=== PATIENT | female | born 1950 | race Caucasian/White ===

== ENCOUNTER 2016-10-22 07:50 | Outpatient (CLI) | payer OTHER | END 2016-10-22 07:51 | disposition home or self-care (01) | DX: I10 Essential (primary) hypertension (principal); E78.5 Hyperlipidemia, unspecified ==

== ENCOUNTER 2018-09-04 08:40 | Outpatient (CLI) | payer MEDICARE, OTHER ==
[2018-09-04 18:02] LABS: BASOPHILS # (AUTO) 0.1 10^3/uL (0.0-0.1); EOSINOPHILS # (AUTO) 0.2 10^3/uL (0.0-0.7); EOSINOPHILS % (AUTO) 2.7 %; HGB - HEMOGLOBIN 11.9 g/dL (12.0-16.0); LYMPHOCYTES # (AUTO) 1.6 10^3/uL (1.5-3.5); LYMPHOCYTES % (AUTO) 27.2 %; MEAN CORPUSCULAR HEMOGLOBIN 26.2 pg (27.0-31.0); MEAN CORPUSCULAR HGB CONC 32.4 g/dL (32.0-36.0); MEAN CORPUSCULAR VOLUME 80.7 fL (81.0-99.0); MEAN PLATELET VOLUME 8.6 fL (7.9-10.8); MONOCYTES # (AUTO) 0.4 10^3/uL (0.0-1.0); MONOCYTES % (AUTO) 6.5 %; NEUTROPHILS # (AUTO) 3.7 10^3/uL (1.5-6.6); NEUTROPHILS % (AUTO) 62.6 %; PLT - PLATELET COUNT 265 10^3/uL (130-450); RED BLOOD COUNT 4.54 10^6/uL (4.20-5.40); RED CELL DISTRIBUTION WIDTH 14.3 % (12.0-15.0)
[2018-09-04 18:31] LABS: ALBUMIN 3.7 g/dL (3.2-5.5); ALBUMIN/GLOBULIN RATIO 1.1 (1.0-2.2); ALKALINE PHOSPHATASE 66 IU/L (42-121); ALT ALANINE AMINOTRANSFERASE 12 IU/L (10-60); AST ASPARTATE AMINOTRANSFERASE 16 IU/L (10-42); BILIRUBIN,TOTAL 0.5 mg/dL (0.2-1.0); BUN - BLOOD UREA NITROGEN 24 mg/dL (6-20); CARBON DIOXIDE - CO2 27 mmol/L (21-32); CHLORIDE 103 mmol/L (101-111); CHOLESTEROL 173 mg/dL; GFR - MDRD 56 (>89); GLUCOSE 103 mg/dL (70-100); HDL CHOLESTEROL 57 mg/dL; LDL CHOLESTEROL,CALCULATED 104 mg/dL; LDL/HDL RATIO 1.8 (<4.4); SODIUM 136 mmol/L (135-145); TOTAL PROTEIN 7.2 g/dL (6.7-8.2); VLDL CHOLESTEROL 12 mg/dL
== END 2018-09-04 08:41 | disposition home or self-care (01) ==
LOC: LAB.F 08:40
PROVIDERS: ATTEND Nurse Practitioner Family
DX: I10 Essential (primary) hypertension (principal); E78.5 Hyperlipidemia, unspecified
CPT/HCPCS: 36415; 80053; 80061; 83721; 84443; 85025

== ENCOUNTER 2019-07-13 09:43 | Outpatient (CLI) | payer MEDICARE, OTHER ==
[2019-07-13 18:28] LABS: BASOPHILS # (AUTO) 0.1 10^3/uL (0.0-0.1); BASOPHILS % (AUTO) 0.9 %; EOSINOPHILS # (AUTO) 0.1 10^3/uL (0.0-0.7); EOSINOPHILS % (AUTO) 1.9 %; HGB - HEMOGLOBIN 11.6 g/dL (12.0-16.0); LYMPHOCYTES # (AUTO) 1.9 10^3/uL (1.5-3.5); LYMPHOCYTES % (AUTO) 29.5 %; MEAN CORPUSCULAR HEMOGLOBIN 23.6 pg (27.0-31.0); MEAN CORPUSCULAR HGB CONC 29.4 g/dL (32.0-36.0); MEAN CORPUSCULAR VOLUME 80.4 fL (81.0-99.0); MEAN PLATELET VOLUME 10.6 fL (7.9-10.8); MONOCYTES # (AUTO) 0.5 10^3/uL (0.0-1.0); MONOCYTES % (AUTO) 7.7 %; NEUTROPHILS # (AUTO) 3.8 10^3/uL (1.5-6.6); NEUTROPHILS % (AUTO) 59.7 %; PLT - PLATELET COUNT 313 10^3/uL (130-450); RED BLOOD COUNT 4.91 10^6/uL (4.20-5.40); RED CELL DISTRIBUTION WIDTH 15.5 % (12.0-15.0); WHITE BLOOD COUNT 6.4 x10^3/uL (4.8-10.8)
[2019-07-13 18:55] LABS: ALBUMIN 3.8 g/dL (3.2-5.5); ALBUMIN/GLOBULIN RATIO 1.1 (1.0-2.2); ALKALINE PHOSPHATASE 59 IU/L (42-121); ALT ALANINE AMINOTRANSFERASE 12 IU/L (10-60); AST ASPARTATE AMINOTRANSFERASE 15 IU/L (10-42); BILIRUBIN,TOTAL 0.5 mg/dL (0.2-1.0); BUN - BLOOD UREA NITROGEN 24 mg/dL (6-20); CALCIUM 9.1 mg/dL (8.5-10.3); CARBON DIOXIDE - CO2 25 mmol/L (21-32); CHLORIDE 106 mmol/L (101-111); CHOLESTEROL 223 mg/dL; CREATININE 1.1 mg/dL (0.4-1.0); GFR - MDRD 50 (>89); GLUCOSE 107 mg/dL (70-100); HDL CHOLESTEROL 56 mg/dL; LDL CHOLESTEROL,CALCULATED 154 mg/dL; LDL/HDL RATIO 2.8 (<4.4); SODIUM 137 mmol/L (135-145); TOTAL PROTEIN 7.2 g/dL (6.7-8.2); VLDL CHOLESTEROL 13 mg/dL
== END 2019-07-13 09:44 | disposition home or self-care (01) ==
LOC: LAB.S 09:43
PROVIDERS: ATTEND Registered Nurse
DX: I10 Essential (primary) hypertension (principal); R73.01 Impaired fasting glucose; E78.5 Hyperlipidemia, unspecified
CPT/HCPCS: 36415; 80053; 80061; 83721; 84443; 85025

== ENCOUNTER 2019-08-16 13:43 | Outpatient (CLI) | payer MEDICARE, OTHER ==
--- NOTE | 2019-08-20 11:03 | Mammography Report ---
Reason: ROUTINE MAMMO Procedure Date: 08/16/2019 Accession Number: [id number] / [id number] Procedure: MGS - Screening Mammo Dig Bilat CPT Code: Final Report FULL RESULT: EXAM: Screening Mammo Dig Bilat DATE: 08/16/2019 2:01 PM CLINICAL HISTORY: Screening encounter. History of early menses. Family history of breast cancer in a paternal aunt at the age of 60. TECHNIQUE: (B) - Bilateral CC and MLO views were obtained. COMPARISON: 12/26/2014. PARENCHYMAL PATTERN: (A) - The breast(s) demonstrate(s) scattered fibroglandular densities. FINDINGS: There are no suspicious masses, calcifications, or areas of distortion. IMPRESSION: Negative examination. BI-RADS category 1. RECOMMENDATION: (ANNUAL) - Recommend routine annual screening mammography. BI-RADS CATEGORY: (1) - Negative. STANDARD QUALIFYING STATEMENTS: 1. This examination was reviewed with the aid of Computer-Aided Detection (CAD). 2. A negative or benign imaging report should not preclude biopsy if clinically suspicious findings are present. 3. Dense breasts may obscure an underlying neoplasm. 4. This examination was reviewed without the aid of 3D breast imaging (tomosynthesis).
== END 2019-08-16 13:44 | disposition home or self-care (01) ==
LOC: DI.S 13:43
PROVIDERS: ATTEND Registered Nurse
DX: Z12.31 Encounter for screening mammogram for malignant neoplasm of breast (principal); Z80.3 Family history of malignant neoplasm of breast
CPT/HCPCS: 77067

== ENCOUNTER 2020-09-04 08:11 | Outpatient (CLI) | payer MEDICARE, OTHER ==
[2020-09-04 15:58] LABS: BASOPHILS # (AUTO) 0.1 10^3/uL (0.0-0.1); BASOPHILS % (AUTO) 0.7 %; EOSINOPHILS # (AUTO) 0.1 10^3/uL (0.0-0.7); EOSINOPHILS % (AUTO) 1.8 %; HCT - HEMATOCRIT 41.9 % (37.0-47.0); HGB - HEMOGLOBIN 12.7 g/dL (12.0-16.0); LYMPHOCYTES # (AUTO) 1.9 10^3/uL (1.5-3.5); LYMPHOCYTES % (AUTO) 24.5 %; MEAN CORPUSCULAR HEMOGLOBIN 25.6 pg (27.0-31.0); MEAN CORPUSCULAR HGB CONC 30.3 g/dL (32.0-36.0); MEAN CORPUSCULAR VOLUME 84.3 fL (81.0-99.0); MEAN PLATELET VOLUME 10.7 fL (7.9-10.8); MONOCYTES # (AUTO) 0.5 10^3/uL (0.0-1.0); NEUTROPHILS % (AUTO) 65.9 %; PLT - PLATELET COUNT 308 10^3/uL (130-450); RED BLOOD COUNT 4.97 10^6/uL (4.20-5.40); RED CELL DISTRIBUTION WIDTH 13.7 % (12.0-15.0); WHITE BLOOD COUNT 7.6 x10^3/uL (4.8-10.8)
[2020-09-04 16:27] LABS: ALBUMIN 3.8 g/dL (3.2-5.5); ALBUMIN/GLOBULIN RATIO 1.1 (1.0-2.2); ALKALINE PHOSPHATASE 61 IU/L (42-121); ALT ALANINE AMINOTRANSFERASE 12 IU/L (10-60); AST ASPARTATE AMINOTRANSFERASE 14 IU/L (10-42); BILIRUBIN,TOTAL 0.5 mg/dL (0.2-1.0); BUN - BLOOD UREA NITROGEN 18 mg/dL (6-20); CALCIUM 9.3 mg/dL (8.5-10.3); CARBON DIOXIDE - CO2 24 mmol/L (21-32); CHLORIDE 103 mmol/L (101-111); CHOL/HDL RATIO 3.7 (<4.4); CHOLESTEROL 191 mg/dL; GFR - MDRD 55 (>89); GLUCOSE 117 mg/dL (70-100); HDL CHOLESTEROL 51 mg/dL; LDL CHOLESTEROL,CALCULATED 119 mg/dL; LDL/HDL RATIO 2.3 (<4.4); POTASSIUM 3.8 mmol/L (3.5-5.0); SODIUM 136 mmol/L (135-145); THYROID STIMULATING HORMONE 1.7 uIU/mL (0.34-5.60); TOTAL PROTEIN 7.4 g/dL (6.7-8.2); TRIGLYCERIDES 104 mg/dL; VLDL CHOLESTEROL 21 mg/dL
== END 2020-09-04 08:12 | disposition home or self-care (01) ==
LOC: LAB.S 08:11
PROVIDERS: ATTEND Registered Nurse
DX: R19.8 Other specified symptoms and signs involving the digestive system and abdomen (principal); K59.09 Other constipation; I10 Essential (primary) hypertension; R73.01 Impaired fasting glucose; E78.5 Hyperlipidemia, unspecified
CPT/HCPCS: 36415; 80053; 80061; 83721; 84443; 85025

== ENCOUNTER 2020-09-08 14:32 | Outpatient (CLI) | payer MEDICARE, OTHER ==
--- NOTE | 2020-09-08 16:02 | XRAY Report ---
PROCEDURE: Abdomen 2 View X-Ray INDICATIONS: BOWEL PATTERN, CONSTIPATION TECHNIQUE: 2 views of the abdomen were acquired. COMPARISON: FINDINGS: Surgical changes and devices: None. Bowel: No pneumoperitoneum. The bowel gas pattern is normal for the small bowel but the colon demon strate generalized colonic obstipation.. Soft tissues: No masses; visualized solid organ contours appear normal in size. No suspicious abdom inal calcifications. Bones: No suspicious bony abnormalities. IMPRESSION: Generalized colonic obstipation. This is present both on the right and the left, and wit hin the abdomen and the pelvis. Reviewed by: Isaias Navarro MD on 09/08/2020 4:01 PM PDT Approved by: Isaias Navarro MD on 09/08/2020 4:01 PM PDT Station ID: [id number]
== END 2020-09-08 14:33 | disposition home or self-care (01) ==
LOC: DI.S 14:32
PROVIDERS: ATTEND Registered Nurse
DX: K59.09 Other constipation (principal); R19.8 Other specified symptoms and signs involving the digestive system and abdomen

== ENCOUNTER 2020-10-17 12:30 | Day surgery (SDC) | payer MEDICARE, OTHER ==
[2020-10-17] MEDS ORDERED: LACTATED RINGERS 1,000 ML IV ONE ×2 (12:38→16:35)
[2020-10-17] MEDS ORDERED: fentaNYL 250 MCG/5 ML VIAL ONE (15:08)
[2020-10-17] MEDS ORDERED: MIDAZOLAM 2 MG/2 ML VIAL ONE ×4 (15:08→15:51)
--- NOTE | 2020-10-17 15:16 | HISTORY & PHYSICAL EXAMINATION ---
Chief Complaint - Chief Complaint Chief Complaint: irregular bowel habits History of Present Illness - History Obtained From Records Reviewed: yes History obtained from: pt Exam Limitations: none - History of Present Illness HPI Comment/Other: History of irregular bowel habits for years. No prior colon cancer screening History - Past Medical History Cardiovascular: reports: Hypertension GI: reports: None : reports: None Psych: reports: Depression, Anxiety, Panic attacks Musculoskeletal: reports: Osteoarthritis Derm: reports: None MRSA Hx?: No Meds/Allgy - Home Medications Home Medications: Ambulatory Orders Medication Instructions Recorded Confirmed Losartan Potassium [Cozaar] 100 mg PO DAILY 10/16/20 10/17/20 Lovastatin 20 mg PO DAILY 10/16/20 10/17/20 PARoxetine [Paxil] 20 mg PO DAILY 10/16/20 10/17/20 - Allergies Allergies/Adverse Reactions: Allergies Allergy/AdvReac Type Severity Reaction Status Date / Time Sulfa (Sulfonamide Allergy Unknown Verified 10/17/20 12:59 Antibiotics) lisinopril AdvReac Unknown Verified 10/17/20 12:59 Review of Systems - Other Findings Other Findings: 10 pt ros as above otherwise unremarkable Exam - Vital Signs Reviewed Vital Signs: Yes Vital Signs: Vital Signs x48h Temp Pulse Resp BP Pulse Ox 10/17/20 12:49 36.4 C L 66 12 124/70 95 - Physical Exam General Appearance: positive: No acute distress, Alert Eyes Bilateral: positive: Normal inspection, PERRL, EOMI ENT: positive: No signs of dehydration Neck: positive: No JVD Respiratory: positive: Breath sounds nml Cardiovascular: positive: Regular rate & rhythm Abdomen: positive: Non-tender, No distention Neurologic/Psychiatric: positive: Oriented x3 Conclusion/Plan - Problem List (1) Irregular bowel habits Conclusion/Plan: plan colonoscopy. parq held and consent obtained
[2020-10-17 16:55] VITALS: BP 156/77
== END 2020-10-17 12:31 | disposition home or self-care (01) ==
LOC: SDS 12:30
PROVIDERS: ATTEND Surgery
PROC: 0DBL8ZZ Excision of Transverse Colon, Via Natural or Artificial Opening Endoscopic (ICD-10-PCS; 2020-10-17)
PROC: 0DBN8ZZ Excision of Sigmoid Colon, Via Natural or Artificial Opening Endoscopic (ICD-10-PCS; 2020-10-17)
PROC: 0DBH8ZZ Excision of Cecum, Via Natural or Artificial Opening Endoscopic (ICD-10-PCS; 2020-10-17)
PROC: 0DBH8ZZ Excision of Cecum, Via Natural or Artificial Opening Endoscopic (ICD-10-PCS; 2020-10-17)
PROC: 0DBK8ZZ Excision of Ascending Colon, Via Natural or Artificial Opening Endoscopic (ICD-10-PCS; principal; 2020-10-17 13:30)
DX: R19.4 Change in bowel habit (principal); R10.9 Unspecified abdominal pain; D12.5 Benign neoplasm of sigmoid colon; D12.3 Benign neoplasm of transverse colon; D12.2 Benign neoplasm of ascending colon; D12.1 Benign neoplasm of appendix; D12.0 Benign neoplasm of cecum; K57.30 Diverticulosis of large intestine without perforation or abscess without bleeding
CPT/HCPCS: 45380; 45385; J3010; J7120

== ENCOUNTER 2021-12-17 08:00 | Outpatient (CLI) | payer MEDICARE, OTHER ==
--- NOTE | 2021-12-17 17:35 | XRAY Report ---
PROCEDURE: Chest 2 View X-Ray INDICATIONS: CARDIAC MURMUR/COUGH/EXERCISE INTOLERANCE TECHNIQUE: 2 view(s) of the chest. COMPARISON: None. FINDINGS: Surgical changes and devices: None. Lungs and pleura: No pleural effusions or pneumothorax. Lungs are clear. Large hiatal hernia with a ir-fluid level. Mediastinum: Mediastinal contours are normal. Heart size is normal. Bones and chest wall: No suspicious bony abnormalities. Soft tissues appear unremarkable. IMPRESSION: Large hiatal hernia with air-fluid level. Otherwise, no acute cardiopulmonary abnormalit ies or focal airspace disease. Reviewed by: Italo Hess MD on 12/17/2021 5:33 PM PDT Approved by: Italo Hess MD on 12/17/2021 5:33 PM PDT Station ID: [id number]
== END 2021-12-17 23:59 | disposition home or self-care (01) ==
LOC: DI.S 08:00
PROVIDERS: ATTEND Registered Nurse
DX: R01.1 Cardiac murmur, unspecified (principal); R05.1 Acute cough; R53.83 Other fatigue; K44.9 Diaphragmatic hernia without obstruction or gangrene

== ENCOUNTER 2022-03-13 15:42 | Outpatient (CLI) | payer MEDICARE, OTHER | END 2022-03-13 15:43 | disposition short-term general hospital (02) | LOC: EMS 15:42 | DX: R07.9 Chest pain, unspecified (principal); R11.2 Nausea with vomiting, unspecified | CPT/HCPCS: A0425; A0427 ==

== ENCOUNTER 2022-09-15 12:36 | Outpatient (CLI) | payer MEDICARE, OTHER | END 2022-09-15 23:59 | disposition short-term general hospital (02) | LOC: EMS 12:36 | DX: R55 Syncope and collapse (principal); R51.9 Headache, unspecified | CPT/HCPCS: A0425; A0427 ==

== ENCOUNTER 2022-09-15 13:11 | Emergency (ER) | payer MEDICARE, OTHER ==
--- NOTE | 2022-09-15 13:21 | ED Physician Documentation ---
PD HPI CHEST PAIN - Stated complaint Stated Complaint: Syncope - History obtained from History obtained from: Patient - Additional information Additional information: 71-year-old woman with history of hypertension, hiatal hernia, depression and anxiety presents after syncopal episode. She states that she was recently admitted to [place] for chest pain with negative work-up. She does not recall if she had an echo. Today she was nauseous for about 10 minutes which is not to out of the ordinary and she gets that with her hiatal hernia but then she either fell or had a syncopal episode. She does not think she completely passed out but reportedly bystanders felt like she was completely syncopal. She hit her head reportedly quite hard on the way down on the refrigerator. She complains of moderate improving headache. No chest pain or trouble breathing. PD PAST MEDICAL HISTORY - Past Medical History Cardiovascular: Hypertension GI: None : None Psych: Depression, Anxiety, Panic attacks Musculoskeletal: Osteoarthritis Derm: None - Present Medications Home Medications: Ambulatory Orders Medication Instructions Recorded Confirmed Losartan Potassium [Cozaar] 100 mg PO DAILY 10/16/20 10/17/20 Lovastatin 20 mg PO DAILY 10/16/20 10/17/20 PARoxetine [Paxil] 20 mg PO DAILY 10/16/20 10/17/20 - Allergies Allergies/Adverse Reactions: Allergies Allergy/AdvReac Type Severity Reaction Status Date / Time Sulfa (Sulfonamide Allergy Unknown Verified 09/15/22 13:27 Antibiotics) lisinopril AdvReac Unknown Verified 09/15/22 13:27 PD ED PE NORMAL - Vitals Vital signs reviewed: Yes - General General: Alert and oriented X 3, No acute distress - HEENT HEENT: PERRL, EOMI - Neck Neck: Supple, no meningeal sign, No bony TTP - Cardiac Cardiac: RRR, Other (3 out of 6 systolic decrescendo murmur heard best at the left upper sternal border. Chronic per patient.) - Respiratory Respiratory: No respiratory distress, Clear bilaterally - Abdomen Abdomen: Non tender - Extremities Extremities: No edema, No calf tenderness / cord - Neuro Neuro: Alert and oriented X 3, Normal speech Results - Vitals Vitals: Vital Signs - 24 hr 09/15/22 09/15/22 09/15/22 13:05 13:24 14:33 Temperature 36.8 C Heart Rate 64 56 L Respiratory 16 16 16 Rate Blood Pressure 155/75 H 157/88 H O2 Saturation 99 100 99 09/15/22 15:30 Temperature 37.1 C Heart Rate 78 Respiratory 16 Rate Blood Pressure 150/71 H O2 Saturation 99 Oxygen O2 Source Room air - EKG (time done) 1356 EKG releavant findings:: EKG personally interpreted by author of this note. Relevant findings are: Rate: Rate (enter#) (57) Rhythm: NSR [place]: Normal Intervals: Normal IN QRS: LVH Ischemia: Normal ST segments - Labs Labs: Laboratory Tests 09/15/22 09/15/22 09/15/22 13:27 13:27 13:27 WBC 7.9 RBC 4.84 Hgb 13.0 Hct 41.6 MCV 86.0 MCH 26.9 L MCHC 31.3 L RDW 14.3 Plt Count 260 MPV 10.0 Neut # (Auto) 5.6 Lymph # (Auto) 1.4 L [place] # (Auto) 0.8 Eos # (Auto) 0.1 Baso # (Auto) 0.1 Absolute Nucleated RBC 0.00 Nucleated RBC % 0.0 Sodium 138 Potassium 4.0 Chloride 104 Carbon Dioxide 28 Anion Gap 6.0 BUN 17 Creatinine 1.0 Estimated GFR (MDRD) 55 L Glucose 115 H Calcium 9.0 Total Bilirubin 0.3 AST 23 ALT 24 Alkaline Phosphatase 60 Troponin I High Sens 3.8 Total Protein 6.7 Albumin 3.4 Globulin 3.3 Albumin/Globulin Ratio 1.0 - Rads (name of study) CT head and C-spine do not show evidence of acute trauma. She does have degenerative changes and remote lacunar infarcts. Relevant Findings:: Final report received, EMP independent interpretation of test PD Medical Decision Making - ED course ED course: 71-year-old woman presents after a possible syncopal episode versus head injury with loss of consciousness. CT imaging of the head and C-spine were negative but incidental findings of arthritis in the neck and old lacunar infarcts were discussed with the patient. The remainder of her work-up was negative with nonischemic EKG and normal CBC and CMP. She was asymptomatic while here. Departure - Departure Disposition: 01 Home, Self Care Clinical Impression: Syncope Qualifiers: Syncope type: vasovagal syncope Qualified Code(s): R55 - Syncope and collapse Head injury Qualifiers: Encounter type: initial encounter Qualified Code(s): S09.90XA - Unspecified injury of head, initial encounter Condition: Good Record reviewed to determine appropriate education?: Yes Instructions: ED Head Injury Closed, ED Syncope Vasovagal Comments: Call your doctor to arrange a follow-up appointment, make the next available appointment. In the interim, return anytime if worse or if new symptoms develop. Discharge Date/Time: 09/15/22 15:31
[2022-09-15 13:35] LABS: BASOPHILS # (AUTO) 0.1 10^3/uL (0.0-0.1); BASOPHILS % (AUTO) 0.6 %; EOSINOPHILS # (AUTO) 0.1 10^3/uL (0.0-0.7); HCT - HEMATOCRIT 41.6 % (37.0-47.0); LYMPHOCYTES # (AUTO) 1.4 10^3/uL (1.5-3.5); LYMPHOCYTES % (AUTO) 17.6 %; MEAN CORPUSCULAR HEMOGLOBIN 26.9 pg (27.0-31.0); MEAN CORPUSCULAR HGB CONC 31.3 g/dL (32.0-36.0); MONOCYTES # (AUTO) 0.8 10^3/uL (0.0-1.0); MONOCYTES % (AUTO) 10.1 %; NEUTROPHILS # (AUTO) 5.6 10^3/uL (1.5-6.6); NEUTROPHILS % (AUTO) 70.4 %; PLT - PLATELET COUNT 260 10^3/uL (130-450); RED BLOOD COUNT 4.84 10^6/uL (4.20-5.40); RED CELL DISTRIBUTION WIDTH 14.3 % (12.0-15.0); WHITE BLOOD COUNT 7.9 x10^3/uL (4.8-10.8)
[2022-09-15 13:46] LABS: ALBUMIN 3.4 g/dL (3.2-5.5); BILIRUBIN,TOTAL 0.3 mg/dL (0.2-1.0); TOTAL PROTEIN 6.7 g/dL (6.7-8.2)
--- NOTE | 2022-09-15 14:00 | CT Report ---
PROCEDURE: HEAD WO INDICATIONS: head inj TECHNIQUE: Noncontrast 4.5 mm thick angled axial sections acquired from the foramen magnum to the vertex. For r adiation dose reduction, the following was used: automated exposure control, adjustment of mA and/or kV according to patient size. COMPARISON: Correlation is made with the accompanying cervical spine CT, 09/15/2022 FINDINGS: Image quality: There is streak artifact seen through the skull base. CSF spaces: Basal cisterns are patent. No extra-axial fluid collections. Ventricles are normal in size and shape. Brain: No midline shift. No intracranial masses or hemorrhage. Maldonado-white matter interface is norm al. Age-appropriate brain parenchymal volume loss and chronic small vessel ischemic change can be se en. Apparent lacunar infarct can be seen within the right basal ganglia. Skull and face: Calvarium and visualized facial bones are intact, without suspicious lesions. Sinuses: Visualized sinuses and mastoids are clear. IMPRESSION: No tra acute abnormality is seen. No intracranial hemorrhage is seen. Apparent remote lacunar infarcts involving the right basal ganglia. Reviewed by: Singh Donaldson MD on 09/15/2022 12:59 PM [facility] Approved by: Singh Donaldson MD on 09/15/2022 12:59 PM [facility] Station ID: [id number]
--- NOTE | 2022-09-15 14:02 | CT Report ---
PROCEDURE: CERVICAL SPINE WO INDICATIONS: head inj TECHNIQUE: Noncontrast 3 mm thick sections acquired from the skull base to the T4 level. Sagittal and coronal r eformats were then constructed. For radiation dose reduction, the following was used: automated exp osure control, adjustment of mA and/or kV according to patient size. COMPARISON: Correlation is made with the accompanying head CT, 09/15/2022. FINDINGS: Image quality: Excellent. Bones: No fractures or dislocations. Visualized superior ribs are intact. Focal degenerative change can be seen involving the C1-C2 interface anteriorly. Multiple levels of si gnificant facet arthropathy can be seen. The disc heights are relatively well-preserved. Soft tissues: Prevertebral soft tissues are normal in thickness. No paravertebral hematomas. No ap ical pneumothoraces. Atherosclerotic calcification is seen. IMPRESSION: Negative for fracture. Reviewed by: Singh Donaldson MD on 09/15/2022 1:01 PM [facility] Approved by: Singh Donaldson MD on 09/15/2022 1:01 PM [facility] Station ID: [id number]
--- NOTE | 2022-09-15 14:08 | XRAY Report ---
PROCEDURE: Chest 1 View X-Ray INDICATIONS: syncope TECHNIQUE: One view of the chest was acquired. COMPARISON: 12/17/2021. FINDINGS: Surgical changes and devices: None. Lungs and pleura: No pleural effusions or pneumothorax. Left basilar atelectasis is seen. No focal i nfiltrate. Mediastinum: Mediastinal contours appear normal. Heart size is normal. Large hiatal hernia is seen. Bones and chest wall: No suspicious bony lesions. Overlying soft tissues appear unremarkable. IMPRESSION: Large hiatal hernia with left basilar atelectasis. No focal infiltrate, pleural effusion or pneumotho rax. Reviewed by: Chucho Brown MD on 09/15/2022 2:06 PM PDT Approved by: Chucho Brown MD on 09/15/2022 2:06 PM PDT Station ID: [id number]
--- OUTSIDE RECORDS SUMMARY | 2022-09-15 14:23 | EXTERNAL MEDICAL SUMMARY RPT | Continuity of Care Document ---
:1950 Author Organization [facility] Address [address] [place] [address] Phone Care Team Providers Name Role Phone Bijan Sky Unavailable Unavailable Allergies No information. Encounters No information. Functional Status No information. Immunizations No information. Medications No information. Problems No information. Procedures No information. Results/Labs test date author facility value unit interpret ation Result panel 1 (unknown) (no (unknown) (unknown) (no value) (units (unk nown) date) unknown) (unknown) (no (unknown) (unknown) 07/23/22 (units (unkno wn) date) unknown) (unknown) (no (unknown) (unknown) [id number] (units (unkno wn) date) unknown) (unknown) (no (unknown) (unknown) 10:44 (units (unkno wn) date) unknown) (unknown) (no (unknown) (unknown) Age at menarche: (units (unknown) date) 13 unknown) (unknown) (no (unknown) (unknown) Age at (units (unkno wn) date) menopause: 42 unknown) (unknown) (no (unknown) (unknown) Age/Sex: 71 / F (units (unknown) date) Date of Service: unknown) (unknown) (no (unknown) (unknown) Allergies (units (unkn own) date) unknown) (unknown) (no (unknown) (unknown) [place], [place] (units ( unknown) date) [id number] unknown) (unknown) (no (unknown) (unknown) Anxiety (units (unkno wn) date) unknown) (unknown) (no (unknown) (unknown) Attending Dr: (units ( unknown) date) Bijan Sky MD unknown) (unknown) (no (unknown) (unknown) BMI 30.7 (units (unkno wn) date) unknown) (unknown) (no (unknown) (unknown) BP 140/90 (units (unkn own) date) unknown) (unknown) (no (unknown) (unknown) Blood Pressure (units (unknown) date) Location Lt unknown) brachial (unknown) (no (unknown) (unknown) Brother Diabetes (units (unknown) date) mellitus unknown) (unknown) (no (unknown) (unknown) : 1950 (units (unknown) date) Acct:[id number] unknown) (unknown) (no (unknown) (unknown) Daughter (units (unkno wn) date) [place] unknown) (unknown) (no (unknown) (unknown) Dept at (units (unkno wn) date) . unknown) (unknown) (no (unknown) (unknown) Did you breast (units (unknown) date) feed?: No unknown) (unknown) (no (unknown) (unknown) Documented By: (units (unknown) date) Bijan Sky MD unknown) 07/23/22 1042 (unknown) (no (unknown) (unknown) Draft (units (unkno wn) date) unknown) (unknown) (no (unknown) (unknown) Family History (units (unknown) date) (Reviewed unknown) 07/23/22 @ 10:43 by Bre Jules MA) (unknown) (no (unknown) (unknown) Father Cancer (units ( unknown) date) unknown) (unknown) (no (unknown) (unknown) Glaucoma (units (unkno wn) date) unknown) (unknown) (no (unknown) (unknown) : 1 (units (unk nown) date) unknown) (unknown) (no (unknown) (unknown) Height 5 ft 6 in (units (unknown) date) unknown) (unknown) (no (unknown) (unknown) Hyperlipemia (units (u nknown) date) unknown) (unknown) (no (unknown) (unknown) Hypertension (units (u nknown) date) unknown) (unknown) (no (unknown) (unknown) Intake (units (unkno wn) date) unknown) (unknown) (no (unknown) (unknown) [facility] (units (unknown) date) unknown) (unknown) (no (unknown) (unknown) Loc: [facility] (units (unkno wn) date) unknown) (unknown) (no (unknown) (unknown) Medical History (units (unknown) date) (Reviewed unknown) 07/23/22 @ 10:43 by Bre Jules MA) (unknown) (no (unknown) (unknown) Medications (units (un known) date) unknown) (unknown) (no (unknown) (unknown) Mother (units (unkno wn) date) Hypertension unknown) (unknown) (no (unknown) (unknown) No Known Drug (units ( unknown) date) Allergies Allergy unknown) (Unverified 07/23/22 10:42) (unknown) (no (unknown) (unknown) 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) Breast History unknown) (unknown) (no (unknown) (unknown) Oxygen Delivery (units (unknown) date) Method room air unknown) (unknown) (no (unknown) (unknown) PFSH (units (unkno wn) date) unknown) (unknown) (no (unknown) (unknown) Para: 1 (units (unkno wn) date) unknown) (unknown) (no (unknown) (unknown) Patient: (units (unkno wn) date) Iain Mcclain unknown) MR#: [id number] (unknown) (no (unknown) (unknown) Position Sitting (units (unknown) date) unknown) (unknown) (no (unknown) (unknown) Pulse 64 (units (unkno wn) date) unknown) (unknown) (no (unknown) (unknown) Pulse Oximetry (units (unknown) date) (%) 96 unknown) (unknown) (no (unknown) (unknown) Pulse Source (units (u nknown) date) Monitor unknown) (unknown) (no (unknown) (unknown) Reason For Visit (units (unknown) date) unknown) (unknown) (no (unknown) (unknown) Signed By: (units (unk nown) date) unknown) (unknown) (no (unknown) (unknown) Smoking Status: (units (unknown) date) Never smoker unknown) (unknown) (no (unknown) (unknown) Social History (units (unknown) date) (Reviewed unknown) 07/23/22 @ 10:43 by Bre Jules MA) (unknown) (no (unknown) (unknown) Status post (units (un known) date) tendon unknown) reattachment (unknown) (no (unknown) (unknown) Surgery Office (units (unknown) date) Visit unknown) (unknown) (no (unknown) (unknown) Surgical History (units (unknown) date) (Reviewed unknown) 07/23/22 @ 10:43 by Bre Jules MA) (unknown) (no (unknown) (unknown) Temp 97.2 F L (units ( unknown) date) unknown) (unknown) (no (unknown) (unknown) Temp Source (units (un known) date) Temporal Artery unknown) Scan (unknown) (no (unknown) (unknown) This note may (units ( unknown) date) have been all or unknown) partially generated using voice recognition (unknown) (no (unknown) (unknown) Tobacco Status (units (unknown) date) unknown) (unknown) (no (unknown) (unknown) Visit Reasons: (units (unknown) date) Hiatal Hernia f/u unknown) per Asya LS 2021 (unknown) (no (unknown) (unknown) Vitals (units (unkno wn) date) unknown) (unknown) (no (unknown) (unknown) Weight 190 lb (units ( unknown) date) unknown) (unknown) (no (unknown) (unknown) have occurred. (units (unknown) date) If there are any unknown) questions, please contact the Medical Records (unknown) (no (unknown) (unknown) household (units (unkn own) date) members: none unknown) (unknown) (no (unknown) (unknown) lives (units (unkno wn) date) independently: unknown) Yes (unknown) (no (unknown) (unknown) lovastatin 10 mg (units (unknown) date) tablet 10 mg PO unknown) DAILY 01/08/22 [History Confirmed 07/23/22] (unknown) (no (unknown) (unknown) marital status: (units (unknown) date) unmarried,single unknown) (unknown) (no (unknown) (unknown) may occur. (units (unk nown) date) Occasional unknown) wrong-word or 'sound-alike' substitutions may have (unknown) (no (unknown) (unknown) occupational (units (u nknown) date) status: unknown) previously employed (unknown) (no (unknown) (unknown) occurred due to (units (unknown) date) the inherent unknown) limitations of voice recognition software. Please (unknown) (no (unknown) (unknown) paroxetine HCl 10 (units (unknown) date) mg tablet 10 mg unknown) PO DAILY 01/08/22 [History Confirmed 07/23/22] (unknown) (no (unknown) (unknown) read the note (units ( unknown) date) carefully and unknown) recognize, using context, where these substitutions (unknown) (no (unknown) (unknown) software. (units (unkn own) date) Although every unknown) effort is made to edit content, heating technician errors Result panel 2 (unknown) (no (unknown) (unknown) (no value) (units (unk nown) date) unknown) (unknown) (no (unknown) (unknown) 07/23/22 (units (unkno wn) date) unknown) (unknown) (no (unknown) (unknown) [id number] (units (unkno wn) date) unknown) (unknown) (no (unknown) (unknown) 10:44 (units (unkno wn) date) unknown) (unknown) (no (unknown) (unknown) Age at menarche: (units (unknown) date) 13 unknown) (unknown) (no (unknown) (unknown) Age at (units (unkno wn) date) menopause: 42 unknown) (unknown) (no (unknown) (unknown) Age/Sex: 71 / F (units (unknown) date) Date of Service: unknown) (unknown) (no (unknown) (unknown) Allergies (units (unkn own) date) unknown) (unknown) (no (unknown) (unknown) [place], [place] (units ( unknown) date) [id number] unknown) (unknown) (no (unknown) (unknown) Anxiety (units (unkno wn) date) unknown) (unknown) (no (unknown) (unknown) Attending Dr: (units ( unknown) date) Bijan Sky MD unknown) (unknown) (no (unknown) (unknown) BMI 30.7 (units (unkno wn) date) unknown) (unknown) (no (unknown) (unknown) BP 140/90 (units (unkn own) date) unknown) (unknown) (no (unknown) (unknown) Blood Pressure (units (unknown) date) Location Lt unknown) brachial (unknown) (no (unknown) (unknown) Brother Diabetes (units (unknown) date) mellitus unknown) (unknown) (no (unknown) (unknown) Chief Complaint (units (unknown) date) unknown) (unknown) (no (unknown) (unknown) Chief Complaint: (units (unknown) date) Hiatal hernia unknown) follow-up (unknown) (no (unknown) (unknown) : 1950 (units (unknown) date) Acct:[id number] unknown) (unknown) (no (unknown) (unknown) Daughter (units (unkno wn) date) [place] unknown) (unknown) (no (unknown) (unknown) Dept at (units (unkno wn) date) . unknown) (unknown) (no (unknown) (unknown) Details: (units (unkno wn) date) unknown) (unknown) (no (unknown) (unknown) Did you breast (units (unknown) date) feed?: No unknown) (unknown) (no (unknown) (unknown) Documented By: (units (unknown) date) Bijan Sky MD unknown) 07/23/22 1042 (unknown) (no (unknown) (unknown) Draft (units (unkno wn) date) unknown) (unknown) (no (unknown) (unknown) Family History (units (unknown) date) (Reviewed unknown) 07/23/22 @ 10:43 by Bre Jules MA) (unknown) (no (unknown) (unknown) Father Cancer (units ( unknown) date) unknown) (unknown) (no (unknown) (unknown) Glaucoma (units (unkno wn) date) unknown) (unknown) (no (unknown) (unknown) : 1 (units (unk nown) date) unknown) (unknown) (no (unknown) (unknown) HPI (units (unkno wn) date) unknown) (unknown) (no (unknown) (unknown) Height 5 ft 6 in (units (unknown) date) unknown) (unknown) (no (unknown) (unknown) Hospital (units (unkno wn) date) including pH unknown) studies, EGD and esophagram which demonstrated a large (unknown) (no (unknown) (unknown) Hyperlipemia (units (u nknown) date) unknown) (unknown) (no (unknown) (unknown) Hypertension (units (u nknown) date) unknown) (unknown) (no (unknown) (unknown) Intake (units (unkno wn) date) unknown) (unknown) (no (unknown) (unknown) [facility] (units (unknown) date) unknown) (unknown) (no (unknown) (unknown) Loc: [facility] (units (unkno wn) date) unknown) (unknown) (no (unknown) (unknown) Medical History (units (unknown) date) (Reviewed unknown) 07/23/22 @ 10:43 by Bre Jules MA) (unknown) (no (unknown) (unknown) Medications (units (un known) date) unknown) (unknown) (no (unknown) (unknown) Mother (units (unkno wn) date) Hypertension unknown) (unknown) (no (unknown) (unknown) Ms. 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) Breast History unknown) (unknown) (no (unknown) (unknown) Oxygen Delivery (units (unknown) date) Method room air unknown) (unknown) (no (unknown) (unknown) PFSH (units (unkno wn) date) unknown) (unknown) (no (unknown) (unknown) Para: 1 (units (unkno wn) date) unknown) (unknown) (no (unknown) (unknown) Patient: (units (unkno wn) date) Iain Mcclain unknown) MR#: [id number] (unknown) (no (unknown) (unknown) Position Sitting (units (unknown) date) unknown) (unknown) (no (unknown) (unknown) Pulse 64 (units (unkno wn) date) unknown) (unknown) (no (unknown) (unknown) Pulse Oximetry (units (unknown) date) (%) 96 unknown) (unknown) (no (unknown) (unknown) Pulse Source (units (u nknown) date) Monitor unknown) (unknown) (no (unknown) (unknown) Reason For Visit (units (unknown) date) unknown) (unknown) (no (unknown) (unknown) She tells me (units (u nknown) date) that since this unknown) was performed that she has lost 15 lb and feels (unknown) (no (unknown) (unknown) Signed By: (units (unk nown) date) unknown) (unknown) (no (unknown) (unknown) Smoking Status: (units (unknown) date) Never smoker unknown) (unknown) (no (unknown) (unknown) Social History (units (unknown) date) (Reviewed unknown) 07/23/22 @ 10:43 by Bre Jules MA) (unknown) (no (unknown) (unknown) Status post (units (un known) date) tendon unknown) reattachment (unknown) (no (unknown) (unknown) Surgery Office (units (unknown) date) Visit unknown) (unknown) (no (unknown) (unknown) Surgical History (units (unknown) date) (Reviewed unknown) 07/23/22 @ 10:43 by Bre Jules MA) (unknown) (no (unknown) (unknown) Temp 97.2 F L (units ( unknown) date) unknown) (unknown) (no (unknown) (unknown) Temp Source (units (un known) date) Temporal Artery unknown) Scan (unknown) (no (unknown) (unknown) This note may (units ( unknown) date) have been all or unknown) partially generated using voice recognition (unknown) (no (unknown) (unknown) Tobacco Status (units (unknown) date) unknown) (unknown) (no (unknown) (unknown) Visit Reasons: (units (unknown) date) Hiatal Hernia f/u unknown) per Asya LS 2021 (unknown) (no (unknown) (unknown) Vitals (units (unkno wn) date) unknown) (unknown) (no (unknown) (unknown) Weight 190 lb (units ( unknown) date) unknown) (unknown) (no (unknown) (unknown) have occurred. (units (unknown) date) If there are any unknown) questions, please contact the Medical Records (unknown) (no (unknown) (unknown) hernia. She went (units (unknown) date) on to have unknown) further evaluation performed at [facility] (unknown) (no (unknown) (unknown) household (units (unkn own) date) members: none unknown) (unknown) (no (unknown) (unknown) lives (units (unkno wn) date) independently: unknown) Yes (unknown) (no (unknown) (unknown) lovastatin 10 mg (units (unknown) date) tablet 10 mg PO unknown) DAILY 01/08/22 [History Confirmed 07/23/22] (unknown) (no (unknown) (unknown) marital status: (units (unknown) date) unmarried,single unknown) (unknown) (no (unknown) (unknown) may occur. (units (unk nown) date) Occasional unknown) wrong-word or 'sound-alike' substitutions may have (unknown) (no (unknown) (unknown) occupational (units (u nknown) date) status: unknown) previously employed (unknown) (no (unknown) (unknown) occurred due to (units (unknown) date) the inherent unknown) limitations of voice recognition software. Please (unknown) (no (unknown) (unknown) paraesophageal (units (unknown) date) hernia with unknown) approximately half the stomach within the chest.. (unknown) (no (unknown) (unknown) paroxetine HCl 10 (units (unknown) date) mg tablet 10 mg unknown) PO DAILY 01/08/22 [History Confirmed 07/23/22] (unknown) (no (unknown) (unknown) read the note (units ( unknown) date) carefully and unknown) recognize, using context, where these substitutions (unknown) (no (unknown) (unknown) reflux minimal (units (unknown) date) regurgitation or unknown) chest pain. (unknown) (no (unknown) (unknown) significantly (units ( unknown) date) better. She is unknown) changed to small meals and has no significant (unknown) (no (unknown) (unknown) software. (units (unkn own) date) Although every unknown) effort is made to edit content, heating technician errors (unknown) (no (unknown) (unknown) symptomatic with (units (unknown) date) regurgitation, unknown) shortness of breath secondary to a large hiatal (unknown) (no (unknown) (unknown) up. She was last (units (unknown) date) seen December 2021 in unknown) the surgical office where she was Result panel 3 (unknown) (no (unknown) (unknown) (no value) (units (unk nown) date) unknown) (unknown) (no (unknown) (unknown) (1) Hiatal (units (unk nown) date) hernia: unknown) (unknown) (no (unknown) (unknown) 07/23/22 (units (unkno wn) date) unknown) (unknown) (no (unknown) (unknown) 07/27/22 1616 (units ( unknown) date) unknown) (unknown) (no (unknown) (unknown) [id number] (units (unkno wn) date) unknown) (unknown) (no (unknown) (unknown) 10:44 (units (unkno wn) date) unknown) (unknown) (no (unknown) (unknown) ABDOMEN: Soft, (units (unknown) date) non-tender, unknown) non-distended (unknown) (no (unknown) (unknown) Age at menarche: (units (unknown) date) 13 unknown) (unknown) (no (unknown) (unknown) Age at menopause: (units (unknown) date) 42 unknown) (unknown) (no (unknown) (unknown) Age/Sex: 71 / F (units (unknown) date) Date of Service: unknown) (unknown) (no (unknown) (unknown) Allergies (units (unkn own) date) unknown) (unknown) (no (unknown) (unknown) [place], [place] (units ( unknown) date) [id number] unknown) (unknown) (no (unknown) (unknown) Anxiety (units (unkno wn) date) unknown) (unknown) (no (unknown) (unknown) Assessment + Plan (units (unknown) date) unknown) (unknown) (no (unknown) (unknown) Attending Dr: (units ( unknown) date) Bijan Sky MD unknown) (unknown) (no (unknown) (unknown) BMI 30.7 (units (unkno wn) date) unknown) (unknown) (no (unknown) (unknown) BP 140/90 (units (unkn own) date) unknown) (unknown) (no (unknown) (unknown) Blood Pressure (units (unknown) date) Location Lt unknown) brachial (unknown) (no (unknown) (unknown) Brother Diabetes (units (unknown) date) mellitus unknown) (unknown) (no (unknown) (unknown) CARDIOVASCULAR: (units (unknown) date) Warm and well unknown) perfused. Regular rate (unknown) (no (unknown) (unknown) CHEST: Rising (units ( unknown) date) symmetrically. No unknown) audible wheezes (unknown) (no (unknown) (unknown) Chief Complaint (units (unknown) date) unknown) (unknown) (no (unknown) (unknown) Chief Complaint: (units (unknown) date) Hiatal hernia unknown) follow-up (unknown) (no (unknown) (unknown) : 1950 (units (unknown) date) Acct:[id number] unknown) (unknown) (no (unknown) (unknown) Daughter (units (unkno wn) date) [place] unknown) (unknown) (no (unknown) (unknown) Dept at (units (unkno wn) date) . unknown) (unknown) (no (unknown) (unknown) Details: (units (unkno wn) date) unknown) (unknown) (no (unknown) (unknown) Did you breast (units (unknown) date) feed?: No unknown) (unknown) (no (unknown) (unknown) Documented By: (units (unknown) date) Bijan Sky MD unknown) 07/23/22 1042 (unknown) (no (unknown) (unknown) EXTREMITIES: (units (u nknown) date) Normal tone and unknown) without edema. (unknown) (no (unknown) (unknown) Exam Narrative (units (unknown) date) unknown) (unknown) (no (unknown) (unknown) Exam Narrative: (units (unknown) date) unknown) (unknown) (no (unknown) (unknown) Exam (units (unkno wn) date) unknown) (unknown) (no (unknown) (unknown) Family History (units (unknown) date) (Reviewed 07/23/22 unknown) @ 10:43 by Bre Jules MA) (unknown) (no (unknown) (unknown) Father Cancer (units ( unknown) date) unknown) (unknown) (no (unknown) (unknown) GENERAL: A well (units (unknown) date) nourished, well unknown) developed woman appearing stated age, resting (unknown) (no (unknown) (unknown) Glaucoma (units (unkno wn) date) unknown) (unknown) (no (unknown) (unknown) : 1 (units (unk nown) date) unknown) (unknown) (no (unknown) (unknown) HEENT: (units (unkno wn) date) Normocephalic, unknown) atraumatic. No scleral icterus (unknown) (no (unknown) (unknown) HPI (units (unkno wn) date) unknown) (unknown) (no (unknown) (unknown) Height 5 ft 6 in (units (unknown) date) unknown) (unknown) (no (unknown) (unknown) Hyperlipemia (units (u nknown) date) unknown) (unknown) (no (unknown) (unknown) Hypertension (units (u nknown) date) unknown) (unknown) (no (unknown) (unknown) Intake (units (unkno wn) date) unknown) (unknown) (no (unknown) (unknown) [facility] (units (unknown) date) unknown) (unknown) (no (unknown) (unknown) Loc: [facility] (units (unkno wn) date) unknown) (unknown) (no (unknown) (unknown) Medical History (units (unknown) date) (Reviewed 07/23/22 unknown) @ 10:43 by Bre Jules MA) (unknown) (no (unknown) (unknown) Medications (units (un known) date) unknown) (unknown) (no (unknown) (unknown) Mother (units (unkno wn) date) Hypertension unknown) (unknown) (no (unknown) (unknown) Ms. Mcclain is a (units (unknown) date) 71-year-old woman unknown) with a large hiatal hernia here for follow (unknown) (no (unknown) (unknown) Ms. Mcclain is a (units (unknown) date) 71-year-old woman unknown) with a large hiatal hernia. We reviewed (unknown) (no (unknown) (unknown) NECK: Full range (units (unknown) date) of motion. No unknown) evidence of cervical lymphadenopathy or JVD. (unknown) (no (unknown) (unknown) NEUROLOGIC: (units (un known) date) Moving all unknown) extremities spontaneously. No gross motor deficits. (unknown) (no (unknown) (unknown) No Known Drug (units ( unknown) date) Allergies Allergy unknown) (Unverified 07/23/22 10:42) (unknown) (no (unknown) (unknown) STRATEGY SPECIALIST and Breast (units (unknown) date) History unknown) (unknown) (no (unknown) (unknown) Over the past 6 (units (unknown) date) months she is lost unknown) approximately 15-20 lb and feels (unknown) (no (unknown) (unknown) Oxygen Delivery (units (unknown) date) Method room air unknown) (unknown) (no (unknown) (unknown) PFSH (units (unkno wn) date) unknown) (unknown) (no (unknown) (unknown) Para: 1 (units (unkno wn) date) unknown) (unknown) (no (unknown) (unknown) Patient: (units (unkno wn) date) Iain Mcclain unknown) MR#: [id number] (unknown) (no (unknown) (unknown) Plan (units (unkno wn) date) unknown) (unknown) (no (unknown) (unknown) Position Sitting (units (unknown) date) unknown) (unknown) (no (unknown) (unknown) Pulse 64 (units (unkno wn) date) unknown) (unknown) (no (unknown) (unknown) Pulse Oximetry (units (unknown) date) (%) 96 unknown) (unknown) (no (unknown) (unknown) Pulse Source (units (u nknown) date) Monitor unknown) (unknown) (no (unknown) (unknown) Reason For Visit (units (unknown) date) unknown) (unknown) (no (unknown) (unknown) Should she (units (unk nown) date) develop worsening unknown) symptoms she may return at any point for further (unknown) (no (unknown) (unknown) Signed By: (units (unk nown) date) <Electronically unknown) signed by Bijan Sky MD> (unknown) (no (unknown) (unknown) Signed (units (unkno wn) date) unknown) (unknown) (no (unknown) (unknown) Smoking Status: (units (unknown) date) Never smoker unknown) (unknown) (no (unknown) (unknown) Social History (units (unknown) date) (Reviewed 07/23/22 unknown) @ 10:43 by Bre Jules MA) (unknown) (no (unknown) (unknown) Status post (units (un known) date) tendon unknown) reattachment (unknown) (no (unknown) (unknown) Status: Acute (units ( unknown) date) unknown) (unknown) (no (unknown) (unknown) Surgery Office (units (unknown) date) Visit unknown) (unknown) (no (unknown) (unknown) Surgical History (units (unknown) date) (Reviewed 07/23/22 unknown) @ 10:43 by Bre Jules MA) (unknown) (no (unknown) (unknown) Temp 97.2 F L (units ( unknown) date) unknown) (unknown) (no (unknown) (unknown) Temp Source (units (un known) date) Temporal Artery unknown) Scan (unknown) (no (unknown) (unknown) This note may (units ( unknown) date) have been all or unknown) partially generated using voice recognition (unknown) (no (unknown) (unknown) Time Coding (units (un known) date) Minutes Spent: unknown) (must be on same date of service/appointmen t) (unknown) (no (unknown) (unknown) Time Spent (units (unk nown) date) unknown) (unknown) (no (unknown) (unknown) Tobacco Status (units (unknown) date) unknown) (unknown) (no (unknown) (unknown) Total Time: 35 (units (unknown) date) unknown) (unknown) (no (unknown) (unknown) Visit Reasons: (units (unknown) date) Hiatal Hernia f/u unknown) per Asya LS 2021 (unknown) (no (unknown) (unknown) Vitals (units (unkno wn) date) unknown) (unknown) (no (unknown) (unknown) Weight 190 lb (units ( unknown) date) unknown) (unknown) (no (unknown) (unknown) comfortably, in (units (unknown) date) no acute distress. unknown) (unknown) (no (unknown) (unknown) esophagram which (units (unknown) date) demonstrated a unknown) large paraesophageal hernia with approximately (unknown) (no (unknown) (unknown) essentially has a (units (unknown) date) large unknown) paraesophageal hernia which contains approximately half (unknown) (no (unknown) (unknown) evaluation (units (unk nown) date) performed at unknown) [facility] including pH studies, EGD and (unknown) (no (unknown) (unknown) evaluation. (units (un known) date) unknown) (unknown) (no (unknown) (unknown) half the stomach (units (unknown) date) within the chest. unknown) (unknown) (no (unknown) (unknown) have occurred. If (units (unknown) date) there are any unknown) questions, please contact the Medical Records (unknown) (no (unknown) (unknown) household (units (unkn own) date) members: none unknown) (unknown) (no (unknown) (unknown) including (units (unkn own) date) conservative unknown) therapy and surgical repair. Her preference at this (unknown) (no (unknown) (unknown) is lost (units (unkno wn) date) approximately 15 unknown) lb and her symptoms have significantly improved to (unknown) (no (unknown) (unknown) lives (units (unkno wn) date) independently: Yes unknown) (unknown) (no (unknown) (unknown) lovastatin 10 mg (units (unknown) date) tablet 10 mg PO unknown) DAILY 01/08/22 [History Confirmed 07/23/22] (unknown) (no (unknown) (unknown) marital status: (units (unknown) date) unmarried,single unknown) (unknown) (no (unknown) (unknown) may occur. (units (unk nown) date) Occasional unknown) wrong-word or 'sound-alike' substitutions may have (unknown) (no (unknown) (unknown) minimal dyspepsia (units (unknown) date) and actually is unknown) taking no antacid medication. (unknown) (no (unknown) (unknown) occupational (units (u nknown) date) status: previously unknown) employed (unknown) (no (unknown) (unknown) occurred due to (units (unknown) date) the inherent unknown) limitations of voice recognition software. Please (unknown) (no (unknown) (unknown) only a chest (units (u nknown) date) x-ray which unknown) demonstrated the hernia. She went on to have further (unknown) (no (unknown) (unknown) paroxetine HCl 10 (units (unknown) date) mg tablet 10 mg PO unknown) DAILY 01/08/22 [History Confirmed 07/23/22] (unknown) (no (unknown) (unknown) point is to (units (un known) date) proceed with unknown) conservative therapy and this is very reasonable. (unknown) (no (unknown) (unknown) read the note (units ( unknown) date) carefully and unknown) recognize, using context, where these substitutions (unknown) (no (unknown) (unknown) regards to small (units (unknown) date) frequent meal size unknown) and routine exercise. She no longer has (unknown) (no (unknown) (unknown) regurgitation and (units (unknown) date) shortness of unknown) breath. At this time she had a incomplete workup (unknown) (no (unknown) (unknown) shortness of (units (u nknown) date) breath and her unknown) regurgitation has become infrequent. She has (unknown) (no (unknown) (unknown) significantly (units ( unknown) date) better. In unknown) addition she is made some lifestyle modifications in (unknown) (no (unknown) (unknown) software. (units (unkn own) date) Although every unknown) effort is made to edit content, heating technician errors (unknown) (no (unknown) (unknown) the stomach (units (un known) date) volume within the unknown) chest. Since she was last seen 6 months ago she (unknown) (no (unknown) (unknown) together her (units (u nknown) date) hiatal hernia unknown) workup, esophagram, EGD and impedance studies. She (unknown) (no (unknown) (unknown) up. She was last (units (unknown) date) seen December 2021, at unknown) which point her major symptoms were (unknown) (no (unknown) (unknown) where she is (units (u nknown) date) minimally unknown) symptomatic now. We discussed management options Social History date description facility 2022-07-23 00:00 Never smoked tobacco (finding) [facility] Vital Signs date measurement value units 2022-07-23 00:00 BMI 30.7 kg/m2 2022-07-23 00:00 BP_diastolic 90 mmHg 2022-07-23 00:00 BP_systolic 140 mmHg 2022-07-23 00:00 heart_rate 64 /min 2022-07-23 00:00 height_metric 167.64 cm 2022-07-23 00:00 height_standard 66 in 2022-07-23 00:00 o2_saturation 96 % 2022-07-23 00:00 temperature_metric 36.22 C 2022-07-23 00:00 temperature_standard 97.2 F 2022-07-23 00:00 weight_metric 86.18 kg 2022-07-23 00:00 weight_standard 189.99 lb
[2022-09-15 15:31] VITALS: BP 150/71
== END 2022-09-15 15:31 | disposition home or self-care (01) ==
LOC: EDUNIT# → ED 13:11
DX: R55 Syncope and collapse (principal); S09.90XA Unspecified injury of head, initial encounter; X58.XXXA Exposure to other specified factors, initial encounter; I10 Essential (primary) hypertension; Z79.899 Other long term (current) drug therapy
CPT/HCPCS: 36415; 80053; 84484; 85025; 93005; 99283; 99284

== ENCOUNTER 2023-01-04 09:15 | Outpatient (CLI) | payer MEDICARE, OTHER ==
[2023-01-04 14:55] LABS: BASOPHILS # (AUTO) 0.1 10^3/uL (0.0-0.1); BASOPHILS % (AUTO) 0.8 %; EOSINOPHILS # (AUTO) 0.1 10^3/uL (0.0-0.7); EOSINOPHILS % (AUTO) 1.7 %; HCT - HEMATOCRIT 40.9 % (37.0-47.0); HGB - HEMOGLOBIN 12.3 g/dL (12.0-16.0); LYMPHOCYTES # (AUTO) 1.6 10^3/uL (1.5-3.5); MEAN CORPUSCULAR HEMOGLOBIN 25.7 pg (27.0-31.0); MEAN CORPUSCULAR HGB CONC 30.1 g/dL (32.0-36.0); MEAN CORPUSCULAR VOLUME 85.4 fL (81.0-99.0); MEAN PLATELET VOLUME 10.5 fL (7.9-10.8); MONOCYTES # (AUTO) 0.6 10^3/uL (0.0-1.0); MONOCYTES % (AUTO) 8.4 %; NEUTROPHILS # (AUTO) 4.2 10^3/uL (1.5-6.6); NEUTROPHILS % (AUTO) 63.9 %; PLT - PLATELET COUNT 288 10^3/uL (130-450); RED BLOOD COUNT 4.79 10^6/uL (4.20-5.40); RED CELL DISTRIBUTION WIDTH 13.1 % (12.0-15.0); WHITE BLOOD COUNT 6.5 x10^3/uL (4.8-10.8)
[2023-01-04 15:24] LABS: THYROID STIMULATING HORMONE 1.59 uIU/mL (0.34-5.60)
[2023-01-04 15:40] LABS: ALBUMIN 4.1 g/dL (3.2-5.5); ALBUMIN/GLOBULIN RATIO 1.1 (1.0-2.2); ALKALINE PHOSPHATASE 67 IU/L (42-121); ALT ALANINE AMINOTRANSFERASE 18 IU/L (10-60); AST ASPARTATE AMINOTRANSFERASE 20 IU/L (10-42); BILIRUBIN,TOTAL 0.7 mg/dL (0.2-1.0); BUN - BLOOD UREA NITROGEN 20 mg/dL (6-20); CALCIUM 9.3 mg/dL (8.5-10.3); CARBON DIOXIDE - CO2 26 mmol/L (21-32); CHLORIDE 106 mmol/L (101-111); CHOL/HDL RATIO 2.8 (<4.4); CHOLESTEROL 194 mg/dL; GFR - MDRD 55 (>89); GLUCOSE 126 mg/dL (70-100); HDL CHOLESTEROL 69 mg/dL; LDL CHOLESTEROL,CALCULATED 106 mg/dL; LDL/HDL RATIO 1.5 (<4.4); POTASSIUM 3.9 mmol/L (3.5-5.0); SODIUM 138 mmol/L (135-145); TOTAL PROTEIN 7.7 g/dL (6.7-8.2); TRIGLYCERIDES 95 mg/dL; VLDL CHOLESTEROL 19 mg/dL
== END 2023-01-04 09:16 | disposition home or self-care (01) ==
LOC: LAB.S 09:15
PROVIDERS: ATTEND Registered Nurse
DX: I10 Essential (primary) hypertension (principal); R73.01 Impaired fasting glucose; E78.5 Hyperlipidemia, unspecified; Z79.899 Other long term (current) drug therapy; Z13.29 Encounter for screening for other suspected endocrine disorder
CPT/HCPCS: 36415; 80053; 80061; 83721; 84443; 85025

== ENCOUNTER 2023-11-24 12:37 | Outpatient (CLI) | payer MEDICARE, OTHER ==
--- NOTE | 2023-11-24 14:59 | CT Report ---
PROCEDURE: Head WO INDICATIONS: DIZZINESS TECHNIQUE: Noncontrast 4.5 mm thick angled axial sections acquired from the foramen magnum to the vertex. For r adiation dose reduction, the following was used: automated exposure control, adjustment of mA and/or kV according to patient size. COMPARISON: 09/15/2022 FINDINGS: Image quality: Excellent. CSF spaces: Basal cisterns are patent. No extra-axial fluid collections. Ventricles are normal in size and shape. Brain: No midline shift. No intracranial masses or hemorrhage. Maldonado-white matter interface is norm al. Apparent remote lacunar infarcts are again seen involving the right basal ganglia. Age-appropria te brain parenchymal volume loss and chronic small vessel ischemic change can be seen. Skull and face: Calvarium and visualized facial bones are intact, without suspicious lesions. Sinuses: Visualized sinuses and mastoids are clear. IMPRESSION: Stable intracranial study, with apparent right basal ganglia lacunar infarcts Reviewed by: Singh Donaldson MD on 11/24/2023 1:58 PM [facility]DT Approved by: Singh Donaldson MD on 11/24/2023 1:58 PM AKDT Station ID: [id number]
== END 2023-11-24 12:38 | disposition home or self-care (01) ==
LOC: DI 12:37
PROVIDERS: ATTEND Registered Nurse
DX: R42 Dizziness and giddiness (principal); R55 Syncope and collapse